=== PATIENT | male | born 1990 | race Caucasian/White ===

== ENCOUNTER → 2016-10-28 | Outpatient (CLI) | payer OTHER ==
[~2016-10-28] MED LIST: CAG500 PO; CALC0.253 PO; CALC667T3 PO; CHLO25TA16 PO; LEVO200T10 PO
[2016-10-28 15:26] LABS: CALCIUM, TOTAL 8.1 mg/dL (8.8-10.5); PHOSPHORUS 4.2 mg/dL (2.5-4.9); THYROID STIMULATING HORMONE 8.86 uIU/mL (0.36-3.74)
== END | disposition home or self-care (01) ==
LOC: LABPV 13:33
PROVIDERS: ATTEND Internal Medicine Endocrinology, Diabetes & Metabolism
DX: E83.51 Hypocalcemia (principal); E89.0 Postprocedural hypothyroidism; C73 Malignant neoplasm of thyroid gland
CPT/HCPCS: 82310; 84100; 84439; 84443; 84481; 86800; 99001

== ENCOUNTER → 2017-02-04 | Outpatient (CLI) | payer OTHER ==
[~2017-02-04] MED LIST changes: -CHLO25TA16 PO; +CHLO25TA3 PO
== END | disposition home or self-care (01) ==
LOC: EMPHLTH 10:26
PROVIDERS: ATTEND Internal Medicine
DX: R76.11 Nonspecific reaction to tuberculin skin test without active tuberculosis (principal)

== ENCOUNTER 2017-11-26 16:59 | Emergency (ER) | payer OTHER ==
[~2017-11-26] VITALS: Ht 188 cm; Wt 77.3 kg
[2017-11-26] MEDS ORDERED: SODIUM CHLORIDE 0.9% 1,000 ML IV ONE ×2 (17:15→18:00)
[2017-11-26 17:20] LABS: BASOPHILS % (AUTO) 0.9 % (0.0-2.0); EOSINOPHILS % (AUTO) 1.8 % (1.0-6.0); HEMATOCRIT 41.7 % (41-53); HEMOGLOBIN 13.3 g/dL (13.5-17.5); LYMPHOCYTES # (AUTO) 2.9 K/uL (1.0-4.8); MEAN CORPUSCULAR HEMOGLOBIN 19.6 pg (26.0-34.0); MEAN CORPUSCULAR VOLUME 61 fL (80-100); MONOCYTES # (AUTO) 0.8 K/uL (0.1-1.0); MONOCYTES % (AUTO) 5.6 % (2.0-9.0); NEUTROPHILS # (AUTO) 9.8 K/uL (1.8-7.7); NEUTROPHILS % (AUTO) 70.7 % (40.0-70.0); RED BLOOD CELL COUNT(AUTO) 6.81 MIL/uL (4.50-5.90); RED CELL DISTRIBUTION WIDTH 16.5 % (11.5-14.5)
[2017-11-26 17:36] LABS: CALCIUM, TOTAL 8.7 mg/dL (8.8-10.5); CREATININE 1.49 mg/dL (0.60-1.30); POTASSIUM 3.5 mmol/L (3.5-5.1)
[2017-11-26 17:37] LABS: MAGNESIUM 1.7 mg/dL (1.80-2.40)
[2017-11-26 18:14] LABS: PLATELET COUNT (AUTO) 202 K/uL (150-450); PLATELET MORPHOLOGY COMMENT LARGE PLTS PRESENT
[2017-11-26 18:45] VITALS: BP 110/81
== END 2017-11-26 18:53 | disposition home or self-care (01) ==
LOC: EMS 17:10
DX: E86.0 Dehydration (principal); J45.909 Unspecified asthma, uncomplicated; E03.9 Hypothyroidism, unspecified; Z88.1 Allergy status to other antibiotic agents; Z98.890 Other specified postprocedural states
CPT/HCPCS: 36415; 80048; 83735; 85025; 99284; J7030

== ENCOUNTER 2017-12-10 03:10 | Emergency (ER) | payer OTHER ==
[~2017-12-10] VITALS: Ht 213.4 cm; Wt 77.0 kg
[~2017-12-10 03:10] MED LIST changes: -CALC0.253 PO; -CALC667T3 PO; -CHLO25TA3 PO
[2017-12-10 03:19] VITALS: BP 100/80
[2017-12-10] MEDS ORDERED: PERTUSS(ACELL),DIPH,TET VAC/PF 0.5 ML VIAL IM ONE (03:45)
== END 2017-12-10 03:54 | disposition home or self-care (01) ==
LOC: EMS 03:11
DX: S41.052A Open bite of left shoulder, initial encounter (principal); J45.909 Unspecified asthma, uncomplicated; E05.90 Thyrotoxicosis, unspecified without thyrotoxic crisis or storm; Z88.1 Allergy status to other antibiotic agents; Y04.1XXA Assault by human bite, initial encounter; Y93.89 Activity, other specified; Y92.89 Other specified places as the place of occurrence of the external cause; Y99.8 Other external cause status
CPT/HCPCS: 90471; 90715; 99283